=== PATIENT | male | born 1985 | race Caucasian/White ===

== ENCOUNTER 2017-11-14 20:14 | Emergency (ER) | payer OTHER ==
[~2017-11-14] VITALS: Ht 177.8 cm; Wt 113.4 kg
[~2017-11-14 20:14] MED LIST: ALLEGRA ALLERGY60 MG PO; FLEXERIL PO; HYDROCODON-ACE1 EAC7 PO; IBUPROFEN 800800 M1 PO; NORCO 5-325 TA1 EACH PO
[2017-11-14 20:45] VITALS: BP 167/117
[2017-11-14] MEDS ORDERED: ZANTAC 150MG T150 MG PO (20:47)
== END 2017-11-14 22:13 | disposition home or self-care (01) ==
LOC: M.ERS 20:14
DX: R25.2 Cramp and spasm (principal); F41.9 Anxiety disorder, unspecified; Z91.018 Allergy to other foods